=== PATIENT | female | born 1995 | race Caucasian/White ===

== ENCOUNTER 2024-11-29 20:55 | Emergency (ER) | payer OTHER ==
[~2024-11-29] VITALS: Wt 135.2 kg
[2024-11-29 21:09] LABS: BASO # 0.0 10*3/uL (0.0-0.1); BASO % 0.3 % (0.0-1.0); EOS # 0.3 10*3/uL (0.0-0.4); EOS % 3.9 % (1.0-4.0); MEAN CELL VOLUME 82.9 fl (81.0-99.0); MEAN CORPUSCULAR HGB 26.4 pg (27.0-31.0); MEAN PLATELET VOLUME 11.1 fl (9.6-12.3); MONO # 0.4 10*3/uL (0.1-1.0); MONO % 5.2 % (3.0-9.0); NEUT # 3.1 10*3/uL (2.3-7.9); NEUT % 45.2 % (47.0-73.0); NUCLEATED RED BLOOD CELL 0.0 % (0.0-0.0); NUCLEATED RED BLOOD CELL 0.0 10*3/uL (0.0-0.0); PLATELET COUNT AUTOMATED 175 10*3/uL (130-400); RED CELL DISTRI WIDTH 15.5 % (0-14.5)
[2024-11-29 21:16] LABS: BILIRUBIN Negative (Negative); BLOOD Negative (Negative); CLARITY Clear (Clear); COLOR Yellow (Yellow); KETONE Trace (Negative); LEUKO ESTERASE 2+ (Negative); NITRITE Negative (Negative); PH 7.0 (4.5-8.0); SPECIFIC GRAVITY 1.025 (1.001-1.030); UROBILINOGEN 1.0 E.U./dl (0.0-1.0)
[2024-11-29] MEDS ORDERED: Ondansetron Hydrochloride 4 MG/2 ML VIAL IV ONE (21:30)
[2024-11-29 21:34] LABS: BACTERIA 2+; WBC 41-50 wbc/hpf (0-5)
[2024-11-29 21:51] LABS: BUN 9 mg/dl (9-23); SGPT/ALT 16 U/L (5-49)
[2024-11-29] MEDS ORDERED: Ciprofloxacin Hydrochloride 500 MG TAB PO ONE (22:40)
[2024-11-29] MEDS ORDERED: HYDROmorphONE Hydrochloride 0.5 MG/0.5 ML SYRINGE IV ONE ×2 (23:05→23:35)
[2024-11-30] MEDS ORDERED: CIPRO500 MG PO (01:08)
[2024-11-30] MEDS ORDERED: Ondansetron4 MG PO (01:08)
== END 2024-11-30 01:16 | disposition home or self-care (01) ==
LOC: ED 20:55
PROVIDERS: Internal Medicine
DX: N39.0 Urinary tract infection, site not specified (principal)

== ENCOUNTER 2024-12-04 04:28 | Emergency (ER) | payer OTHER ==
[~2024-12-04] VITALS: Ht 167.6 cm; Wt 145.1 kg
[~2024-12-04 04:28] MED LIST: CIPRO500 MG PO; Ondansetron4 MG PO
[2024-12-04] MEDS ORDERED: Ondansetron Hydrochloride 4 MG TAB SL ONE (06:45)
[2024-12-04 06:57] LABS: BASO # 0.0 10*3/uL (0.0-0.1); BASO % 0.6 % (0.0-1.0); EOS # 0.3 10*3/uL (0.0-0.4); EOS % 4.6 % (1.0-4.0); MEAN CELL VOLUME 85.0 fl (81.0-99.0); MEAN CORPUSCULAR HGB 26.3 pg (27.0-31.0); MEAN PLATELET VOLUME 11.5 fl (9.6-12.3); MONO # 0.4 10*3/uL (0.1-1.0); MONO % 6.1 % (3.0-9.0); NEUT # 3.0 10*3/uL (2.3-7.9); NEUT % 45.5 % (47.0-73.0); NUCLEATED RED BLOOD CELL 0.0 % (0.0-0.0); NUCLEATED RED BLOOD CELL 0.0 10*3/uL (0.0-0.0); PLATELET COUNT AUTOMATED 182 10*3/uL (130-400); RED CELL DISTRI WIDTH 15.7 % (0-14.5)
[2024-12-04 07:20] LABS: BUN 14 mg/dl (9-23); SGPT/ALT 13 U/L (5-49)
== END 2024-12-04 11:06 | disposition home or self-care (01) ==
LOC: ED 04:28
PROVIDERS: Emergency Medicine
DX: R10.11 Right upper quadrant pain (principal); R11.0 Nausea; Z79.899 Other long term (current) drug therapy